=== PATIENT | male | born 1990 | race Caucasian/White ===

== ENCOUNTER 2018-07-21 08:59 | Outpatient (CLI) | payer BC ==
--- NOTE | 2018-07-21 11:32 | ULT ---
ULTRASOUND ABDOMEN: Date: 07/21/18 HISTORY: Abdominal pain. COMPARISON: None. FINDINGS: Real-time Reyes scale and color evaluation of the abdomen was performed. Visualized portions of the pancreas, aorta, and IVC are unremarkable. Normal hepatic echotexture. No hepatic mass. No intrahepatic or extrahepatic biliary dilatation. Portal vein is patent with antegrade flow and nor mal phasicity. The common bile duct measures 4.0 mm, normal. Gallbladder wall thickness is normal. No pericholecystic fluid Right kidney measures 11.7 x 4.5 x 5.2 cm, without mass, hydronephrosis, or abnormal calcifications. No gallbladder wall thickening. The spleen measures 11.1 cm in length. Left kidney measures 10.4 x 4.9 x 6.1 cm, without mass, hydronephrosis, or calcifications. IMPRESSION: Unremarkable exam. POS: [facility]
== END 2018-07-21 09:00 | disposition home or self-care (01) ==
LOC: ULT 08:59
PROVIDERS: ATTEND Nurse Practitioner Family
DX: R10.9 Unspecified abdominal pain (principal)
CPT/HCPCS: 76700